=== PATIENT | male | born 1960 | race Caucasian/White ===

== ENCOUNTER 2021-06-12 15:35 | Emergency (ER) | payer BC, OTHER, SELFPAY ==
--- NOTE | 2021-06-12 15:38 | ED.URI ---
HPI - URI/Sore Throat General Chief Complaint: Upper Respiratory Infection Stated Complaint: sore throat Time Seen by Provider: 06/12/21 15:39 Source: patient and RN notes reviewed History of Present Illness HPI Narrative: Patient 60-year-old male who presents the urgent care with complaints of sore throat for 2 weeks. Patient states that he has now gotten out slightly hoarse and noticed white patches in the back of his throat. Patient has not taken anything [id number] for his symptoms. Denies of fever, chills, nausea, vomiting. Denies of any known exposure to strep or Covid and patient has been vaccinated for Covid. No other acute complaints. No acute distress noted. Patient aware of the plan of care. Some parts of this dictation were generated by voice recognition software and may contain typographical and/or grammatical inaccuracies. Related Data Home Medications Medication Instructions Recorded Confirmed amlodipine 10 mg PO DAILY 06/12/21 06/12/21 fenofibrate 160 mg PO DAILY 06/12/21 06/12/21 venlafaxine 150 mg PO DAILY 06/12/21 06/12/21 Allergies Allergy/AdvReac Type Severity Reaction Status Date / Time No Known Allergies Allergy Verified 06/12/21 15:47 Review of Systems Review of Systems: CONSTITUTIONAL: Denies fever, chills, or sweats. EYES: Denies visual changes, redness, or discharge. ENT: Denies rhinorrhea, congestion, otalgia. Reports of sore throat/hoarseness CARDIOVASCULAR: Denies chest pain, palpitations, or edema. RESPIRATORY: Denies cough or dyspnea. GASTROINTESTINAL: Denies abdominal pain, nausea, vomiting, or diarrhea. GENITOURINARY: Denies dysuria or hematuria. SKIN: Denies rash or itching. MUSCULOSKELETAL: Denies back pain, joint pain, or myalgia. NEUROLOGIC: Denies headache, numbness, or weakness. All other systems reviewed are negative, except as documented in HPI. [facility] Past Medical History Medical History Disorder of carbohydrate metabolism, unspecified Surgical History Surgical History H/O arthroscopy of knee H/O lithotripsy Hx of appendectomy Hx of cholecystectomy Family History Family History Father Diabetes mellitus Family history of kidney disease Mother Diabetes mellitus Hypertension Other Cerebrovascular accident Family history of cardiovascular disease Social History Social History Alcohol intake: never Comments At the time of my signature, I reviewed and agree with the nursing past medical, surgical, social, and family history. There is no relevant family history pertinent to the patient complaint. Exam Narrative: GENERAL: This is a well-nourished, well-developed patient, in no apparent distress. HEAD: normocephalic, atraumatic. EYES: PERRL. Sclera clear/white. Vision is grossly intact. EARS: External ears normal, auditory canals clear and without drainage, TMs normal without perforation. Hearing grossly intact. NOSE: External nose normal with no obvious nasal discharge, nares without redness, no rhinorrhea. THROAT: Mucous membranes moist, moderate erythema noted to posterior oropharynx with moderate postnasal drainage. NECK: Neck supple, non-tender mild to moderate bilateral submandibular lymphadenopathy CARDIOVASCULAR: Regular rate and rhythm without murmurs, gallops, or rubs. RESPIRATORY: Clear to auscultation. Breath sounds equal bilaterally. No wheezes, rales, or rhonchi. SKIN: warm, intact with no suspicious lesions or rash, good texture and turgor. NEURO: awake, alert, and oriented to person, place and time. There were no obvious focal neurologic abnormalities. EXTREMITIES: No clubbing, cyanosis, or edema. Course Vital Signs Vital signs: Vital Signs Temperature 99.2 F 06/12/21 15:40 Pulse Rate 78 06/12/21 15:40
[2021-06-12 15:40] VITALS: BP 151/79; PULSE 78; RESP 14; TEMP 37.3; O2SAT 100
[2021-06-12 15:50] VITALS: BP 151/79; PULSE 78; RESP 14; TEMP 37.3; O2SAT 100
== END 2021-06-12 15:58 | disposition home or self-care (01) ==
PROVIDERS: Emergency Provider Nurse Practitioner Family
DX: J02.9 Acute pharyngitis, unspecified (principal)
CPT/HCPCS: 87081; 87880; 99213; G0463

== ENCOUNTER 2022-07-10 11:52 | Outpatient (CLI) | payer BC, OTHER, SELFPAY ==
--- NOTE | 2022-07-10 12:01 | ECG_ITS ---
Measurements Intervals [place] Rate: 72 P: 64 IN: 136 QRS: 35 QRSD: 94 T: 55 QT: 393 QTc: 432 Interpretive Statements SINUS RHYTHM NONSPECIFIC T-WAVE ABNORMALITY ABNORMAL ECG NO PREVIOUS ECG AVAILABLE FOR COMPARISON Electronically Signed On 07-10-2022 15:44:46 CDT by River Mcclain M.D.
== END 2022-07-10 11:53 | disposition home or self-care (01) ==
LOC: ANHLAB 11:56
PROVIDERS: PCP Emergency Medicine; Visit Provider Emergency Medicine
DX: I49.9 Cardiac arrhythmia, unspecified (principal); R94.31 Abnormal electrocardiogram [ECG] [EKG]
CPT/HCPCS: 93005

== ENCOUNTER 2022-10-07 11:13 | Emergency (ER) | payer BC, OTHER, SELFPAY ==
[2022-10-07 11:18] VITALS: BP 162/75; PULSE 75; RESP 16; TEMP 36.8; O2SAT 99
--- NOTE | 2022-10-07 11:18 | ED.EYEPROB ---
HPI - Eye Problem General Stated complaint: Eye Problem Time Seen by Provider: 10/07/22 11:18 Source: patient Mode of arrival: ambulatory Limitations: no limitations History of Present Illness HPI Narrative: Anastacio is a 61-year-old male patient presenting to the clinic today with complaints of having an issue with his right eye. He reports he has had swelling to his right upper eyelid x4 days. He denies any fever chills. Reports some mild pain / pressure to the right upper eyelid. Noticed some white discharge coming from the eye today. Related Data Home Medications Medication Instructions Recorded Confirmed Fish Oil Extra Strength 10/07/22 10/07/22 metformin 1,000 mg tablet 1,000 mg PO BID 10/07/22 10/07/22 simvastatin 40 mg tablet 40 mg PO DAILY 10/07/22 10/07/22 Allergies Allergy/AdvReac Type Severity Reaction Status Date / Time No Known Allergies Allergy Verified 10/07/22 11:25 Review of Systems Review of Systems: Pertinent positives per HPI. Patient denies any fever, chills, rash, headache, visual changes, dizziness, cough, runny nose, sore throat, shortness of breath, chest pain, palpitations, nausea, vomiting, diarrhea, constipation, abdominal pain, or any urinary issues. PMFSH Past Medical History Medical History Disorder of carbohydrate metabolism, unspecified Surgical History Surgical History H/O arthroscopy of knee H/O lithotripsy Hx of appendectomy Hx of cholecystectomy Family History Family History Father Diabetes mellitus Family history of kidney disease Mother Diabetes mellitus Hypertension Other Cerebrovascular accident Family history of cardiovascular disease Social History Social History Smoking status: Former smoker (Quit >15 years ago) Alcohol intake: never Comments At the time of my signature, I reviewed and agree with the nursing past medical, surgical, social, and family history. There is no relevant family history pertinent to the patient complaint. Exam Narrative: General: Well-developed, well nourished, in no apparent distress Head: Normocephalic, atraumatic Eyes: Pupils equally round and reactive to light bilaterally, EOM intact, sclera and conjunctive clear, white discharge from the right eye, left lids normal, right upper lid swollen- nontender to palpation, no foreign body, blepharitis, or stye visualized, no palpable mass in the eyelid Ears: TMs intact and clear, ear canals clear, no drainage, grossly hearing normal. Nose: Nares patent, no discharge, no inflammation, no sinus tenderness. Mouth: Oropharynx without lesions or masses, good dentition, MMM. Neck: Supple, trachea midline, no enlargement of anterior or posterior cervical nodes, no thyroid masses or goiter palpable. Cardio: Regular rate and rhythm, s1 and s2 normal, no murmur appreciated. Resp: Clear to auscultation bilaterally anteriorly and posteriorly, no rhonchi, rales, wheezing or rubs Course Course Emergency Course: Portions of this record may have been created with voice recognition software. Level of Care: Express Care Visit Vital Signs Vital signs: Vital signs reviewed MDM - Eye Problem MDM Narrative Medical decision making narrative: At the time of visit patient is resting comfortably on exam table. I suspect the patient has eyelid swelling due to unknown etiology. He has had some whitish discharge coming from the eye so I will treat him with prednisone and TobraDex. Supportive measures were discussed with the patient he voiced understanding of discharge instructions and agrees to treatment plan.. Differential Diagnosis Differential diagnosis: Likely other ( eyelid swelling, blepharitis, conjunctivitis, cellulitis) D
== END 2022-10-07 11:35 | disposition home or self-care (01) ==
PROVIDERS: Emergency Provider Nurse Practitioner Family; PCP Emergency Medicine
DX: H57.11 Ocular pain, right eye (principal); H02.841 Edema of right upper eyelid; Z87.891 Personal history of nicotine dependence
CPT/HCPCS: 99213; G0463

== ENCOUNTER 2022-12-26 13:37 | Emergency (ER) | payer BC, OTHER, SELFPAY ==
[2022-12-26 13:46] VITALS: BP 139/71; PULSE 74; RESP 18; TEMP 36.6; O2SAT 100
--- NOTE | 2022-12-26 13:58 | ED.URI ---
HPI - URI/Sore Throat General Stated Complaint: Sore Throat Time Seen by Provider: 12/26/22 13:50 History of Present Illness HPI Narrative: 62 y/o male with hx DM, HTN, presented for c/o sore throat since yesterday morning. Endorses associated joint pain. Denies any other symptoms. Took ibuprofen yesterday. Denies sick contacts. Related Data Home Medications Medication Instructions Recorded Confirmed cyanocobalamin (vitamin B-12) 2,000 mcg PO DAILY 10/07/22 10/13/22 2,000 mcg tablet,extended release (Vitamin B-12 ER) glimepiride 2 mg tablet 2 mg PO DAILY 10/07/22 10/13/22 omega 4-oem-bri-fish oil 1,200 mg 1 cap PO DAILY 10/07/22 10/13/22 (144 mg-216 mg) capsule (Fish Oil) Allergies Allergy/AdvReac Type Severity Reaction Status Date / Time No Known Allergies Allergy Verified 10/13/22 08:54 Review of Systems Review of Systems: CONSTITUTIONAL: Denies fever, chills, or sweats. EYES: Denies visual changes, redness, or discharge. ENT: Denies rhinorrhea, congestion, or otalgia. CARDIOVASCULAR: Denies chest pain, palpitations, or edema. RESPIRATORY: Denies dyspnea. GASTROINTESTINAL: Denies abdominal pain, nausea, vomiting, or diarrhea. SKIN: Denies rash, itching, or wounds. MUSCULOSKELETAL: Denies back pain, joint pain, or myalgia. NEUROLOGIC: Denies headache PMFSH Past Medical History Medical History Benign hypertension Disorder of carbohydrate metabolism, unspecified Surgical History Surgical History H/O arthroscopy of knee H/O lithotripsy Hx of appendectomy Hx of cholecystectomy Family History Family History Father Diabetes mellitus Family history of kidney disease Mother Diabetes mellitus Hypertension Other Cerebrovascular accident Family history of cardiovascular disease Social History Social History Smoking status: Former smoker (Quit >15 years ago) Alcohol intake: never Exam Narrative: GENERAL: mildly Ill-appearing, no acute distress. EYES: conjunctivae clear ENT: Mucous membranes moist. TM pearly white with normal light reflex bilaterally; no tragal tenderness. Oropharynx erythematous Tonsils enlarged 1+ without exudate. No drooling, no hoarseness, no trismus, uvula midline. No tripod positioning, hot potato voice, or soft palate swelling. NECK: Supple. No lymphadenopathy CHEST: Clear to auscultation, breath sounds equal. No respiratory distress, speaks in full sentences. HEART: Regular rate and rhythm. No murmur heard. SKIN: Warm, dry, no rash. NEURO: Alert and oriented x3. Course Course Emergency Course: Patient is aware of diagnosis, understands and agrees to treatment plan. Anticipatory guidance given. Patient agrees to follow-up as directed and is aware of reasons to seek care at the emergency department. Portions of this record may have been created with voice recognition software Level of Care: Express Care Visit Vital Signs Vital signs: Vital Signs Temperature 98 F 12/26/22 13:46 Pulse Rate 74 12/26/22 13:46 Respiratory Rate 18 12/26/22 13:46 Blood Pressure 139/71 12/26/22 13:46 Pulse Oximetry 100 12/26/22 13:46 Oxygen Delivery Room Air 12/26/22 13:46 Temperature 98 F 12/26/22 13:46 Pulse Rate 74 12/26/22 13:46 Respiratory Rate 18 12/26/22 13:46 Blood Pressure 139/71 12/26/22 13:46 Pulse Oximetry 100 12/26/22 13:46 Oxygen Delivery Room Air 12/26/22 13:46 MDM - URI/Sore Throat MDM Narrative Medical decision making narrative: strep result reviewed with pt. Advise supportive treatments. Patient is appropriate for outpatient treatment and follow-up. Differential Diagnosis Differential diagnosis: Likely upper respiratory infection, viral infection and pharyngitis Disc
== END 2022-12-26 14:05 | disposition home or self-care (01) ==
PROVIDERS: Emergency Provider Nurse Practitioner Family; PCP Emergency Medicine
DX: J02.9 Acute pharyngitis, unspecified (principal); I10 Essential (primary) hypertension; Z87.891 Personal history of nicotine dependence
CPT/HCPCS: 87081; 87880; 99213; G0463

== ENCOUNTER 2023-08-30 09:40 | Outpatient (CLI) | payer BC, OTHER, SELFPAY ==
--- NOTE | ~2023-08-30 | NM_ITS ---
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 The patient was infused intravenously with Lexiscan (regadenoson). Then, 26.5 mCi Tc99m te trofosmin (Myoview) was administered intravenously, and stress images were obtained. Data was reconst ructed into short axis and horizontal and vertical long axis SPECT images. Gated SPECT images were al so obtained. COMPARISON: None. FINDINGS: There is no definite reversible or fixed perfusion abnormality to suggest ischemia or infar ction. There is no segmental wall motion abnormality. Left ventricular ejection fraction measures 6 0%. IMPRESSION: 1. No definite ischemia or infarct. 2. Normal left ventricular ejection fraction measuring 60%. Reviewed, dictated and finalized at location B. D MEAT PACKING SUPERVISOR
--- NOTE | 2023-08-30 09:51 | EST_ITS ---
Patient Info Name: Anastacio Sheets Age: 62 years : 1960 Gender: Male Ht: 70 in Wt: 225 lbs BSA: 2.28 m2 HR: 63 bpm BP: 142 / 72 mmHg Heart Rhythm: Sinus Rhythm Exam Date: 08/30/2023 10:39 AM Exam Location: Echo Lab Patient Status: Outpatient Admit Date: 08/30/2023 Staff Ordering Physician: Adonay Oswald MD Attending Provider: Adonay Oswald MD Exercise Technologist: Niya Mejia CT Exercise Physician: Damir Lopez DO Exam Type: CA stress antoinette w NM Study Info Indications I20.8 - Other forms of angina pectoris A regadenoson stress test was performed. Summary 1. 1. Negative lexiscan stress test for ischemic ST changes by ECG criteria. 2. 2. Stable hemodynamics throughout the test. 3. 3. Nuclear scan to follow and will be reported separately. Please correlate with it. 4. 4. Patient informed of the above results. Protocol: Lexiscan Stress ECG Details Stage: REST Duration (min): 1 min : 2 sec HR (bpm): 64 SBP (mmHg): 142 DBP (mmHg): 72 Stage: REST Duration (min): 5 min : 15 sec HR (bpm): 62 SBP (mmHg): 142 DBP (mmHg): 72 Stage: STAGE 1 Duration (min): 0 min : 59 sec HR (bpm): 69 SBP (mmHg): 140 DBP (mmHg): 74 Stage: RECOVERY Duration (min): 1 min : 0 sec HR (bpm): 81 SBP (mmHg): 140 DBP (mmHg): 74 Stage: RECOVERY Duration (min): 2 min : 0 sec HR (bpm): 80 SBP (mmHg): 140 DBP (mmHg): 74 Stage: RECOVERY Duration (min): 3 min : 0 sec HR (bpm): 77 SBP (mmHg): 132 DBP (mmHg): 72 Stage: RECOVERY Duration (min): 3 min : 17 sec HR (bpm): 74 SBP (mmHg): 132 DBP (mmHg): 72 Rest HR: 62 bpm Peak HR: 82 bpm Rest Sys BP: 142 mmHg Peak Sys BP: 140 mmHg Max Pred HR: 158 bpm % Max Pred HR: 52 % Target HR: 134 bpm Max RPP: 11,480 bpm*mmHg Termination Reason: Completed protocol Cardiac Symptoms: Shortness of breath Total Time: 1 min : 0 sec Rest Pozo BP: 72 mmHg Peak [place] BP: 74 mmHg Total Dose: 0.4 mg Resting ECG Sinus rhythm. Stress ECG No ST changes. Arrhythmias None. Report Signatures
== END 2023-08-30 09:41 | disposition home or self-care (01) ==
PROVIDERS: PCP Emergency Medicine; Visit Provider Emergency Medicine
DX: E11.40 Type 2 diabetes mellitus with diabetic neuropathy, unspecified (principal); I20.89 Other forms of angina pectoris
CPT/HCPCS: 78452; 93017; A9502; J2785

== ENCOUNTER 2024-02-09 12:16 | Outpatient (CLI) | payer BC, OTHER, SELFPAY ==
--- NOTE | 2024-02-09 12:38 | ECG_ITS ---
SEE SCANNED COPY FOR CONFIRMED REPORT MTDD
== END 2024-02-09 12:17 | disposition home or self-care (01) ==
LOC: ANHCARD 12:18
PROVIDERS: PCP Emergency Medicine; Visit Provider Emergency Medicine
DX: I49.9 Cardiac arrhythmia, unspecified (principal)
CPT/HCPCS: 93005

== ENCOUNTER 2024-03-17 12:39 | Outpatient (CLI) | payer BC, OTHER, SELFPAY ==
--- NOTE | 2024-03-17 12:46 | ECHO_ITS ---
Patient Info Name: Anastacio Sheets Age: 63 years : 1960 Gender: Male Ht: 70 in Wt: 220 lbs BSA: 2.25 m2 HR: 81 bpm BP: 150 / 81 mmHg Technical Quality: Good Exam Date: 03/17/2024 1:00 PM Exam Location: Echo Lab Patient Status: Outpatient Admit Date: 03/17/2024 Staff Ordering Physician: Cynthia Angulo Batter Mixer Helper: David Vásquez RDCS Attending Provider: Cynthia Angulo Referring Physician: Kev ARCHER; Exam Type: CA echo doppler color flow Study Info Indications I48.91 - unspecified atrial fibrillation Complete two-dimensional, color flow and Doppler transthoracic echocardiogram is performed. Summary 1. Complete two-dimensional, color flow and Doppler transthoracic echocardiogram is performed. 2. Left ventricular chamber dimension is normal. 3. Left ventricular systolic function is normal, estimated at 65-70%. 4. The left ventricular diastolic function is normal. 5. E/e' 6 is not elevated. 6. Left atrial chamber dimension is mildly enlarged. 7. Atrial fibrillation. 8. There is mild aortic valve sclerosis. 9. No pulmonary hypertension, estimated pulmonary arterial systolic pressure is 16 mmHg. Left Ventricle E/e' 6 is not elevated. Left ventricular chamber dimension is normal. Left ventricular systolic function is normal, estimated at 65-70%. The left ventricular diastolic function is normal. Atrial fibrillation. Right Ventricle Right ventricular chamber dimension is normal. Right ventricular systolic function is normal. Left Atria Left atrial chamber dimension is mildly enlarged. Right Atria Right atrial chamber dimension is normal. Aortic Valve The aortic valve is trileaflet. There is mild aortic valve sclerosis. There is no aortic valve stenosis. There is no aortic valve regurgitation. Pulmonic Valve There is no pulmonic regurgitation. Mitral Valve There is no mitral valve stenosis. There is no mitral valve regurgitation. Tricuspid Valve There is no tricuspid valve regurgitation. No pulmonary hypertension, estimated pulmonary arterial systolic pressure is 16 mmHg. Pericardium/Pleural There is no pericardial effusion. Inferior Vena Cava Normal inferior vena cava with >50% collapse upon inspiration consistent with normal right atrial pressure, 5 mmHg. Aorta The aortic root size at the sinus of Valsalva is normal. Left Ventricular Outflow Tract Name Value Normal LVOT 2D LVOT Diameter 2.0 cm LVOT Doppler LVOT Peak Gradient 7 mmHg LVOT Mean Gradient 4 mmHg LVOT VTI 21 cm LVOT VTI/AV VTI Ratio 0.9 LVOT Stroke Volume 66 ml LVOT CO 6.5 l/min LVOT CI 2.9 l/min/m2 Pulmonic Valve Name Value Normal PV Doppler PV Peak Gradient 4 mmHg Mitral Valve ---
== END 2024-03-17 12:40 | disposition home or self-care (01) ==
LOC: ANHCARD 12:40
PROVIDERS: PCP Emergency Medicine; Visit Provider Nurse Practitioner Family
DX: I48.91 Unspecified atrial fibrillation (principal)
CPT/HCPCS: 93306